=== PATIENT | male | born 2000 | race African-American/Black ===

== ENCOUNTER 2019-12-12 17:02 | Emergency (ER) | payer SELFPAY ==
[~2019-12-12] VITALS: Ht 182.9 cm; Wt 79.0 kg
[~2019-12-12 17:02] MED LIST: BENADRYL
[2019-12-12] MEDS ORDERED: AZITHROMYCIN 500 MG TABLET PO ONE (20:30)
[2019-12-12] MEDS ORDERED: CEFTRIAXONE SODIUM 250 MG/VIAL IM ONE (20:30)
[2019-12-12 20:58] VITALS: BP 145/60
[2019-12-15 04:07] LABS: NEISSERIA GONORRHOEAE NAA Positive (Negative)
== END 2019-12-12 20:59 | disposition home or self-care (01) ==
LOC: ER 17:12
DX: Z20.2 Contact with and (suspected) exposure to infections with a predominantly sexual mode of transmission (principal); J06.9 Acute upper respiratory infection, unspecified
CPT/HCPCS: 87491; 87591; 96372; 99283; J0696